=== PATIENT | male | born 1965 | race Caucasian/White ===

== ENCOUNTER 2020-04-26 16:26 | Emergency (ER) | payer OTHER ==
[~2020-04-26] VITALS: Ht 177.8 cm; Wt 77.1 kg
--- OUTSIDE RECORDS SUMMARY | 2020-04-26 16:56 | XMS ---
PreManage Notification: VINAYAK GARZA Security Medicaid Biller Events No recent Security Events currently on file CRITERIA MET - [facility] [place] - 2 Visits in 30 Days CARE PROVIDERS MIKE LOPEZ Nurse Practitioner: Family Current PHONE: [phone] Kang has no Care Guidelines for this patient. Ed[place] VISIT COUNT (12 MO.) 1 Errol Lemons [address] [place] [address] TOTAL 2 NOTE: Visits indicate total known visits. ED/UCC VISIT TRACKING (12 MO.) 04/26/2020 16:27 TIM Bergeron [place] TYPE: Emergency COMPLAINT: - PAIN 04/07/2020 17:43 Errol RIVERA OR TYPE: Emergency DIAGNOSES: - hand laceration - Thumb Laceration - Laceration without foreign body of right hand, initial encoun INPATIENT VISIT TRACKING (12 MO.) No inpatient visits to display in this time frame [email or web address]
== END 2020-04-26 17:27 | disposition left against medical advice (07) ==
LOC: ED 16:26
DX: F29 Unspecified psychosis not due to a substance or known physiological condition (principal); F17.200 Nicotine dependence, unspecified, uncomplicated
CPT/HCPCS: 99283